=== PATIENT | male | born 1970 | race Hispanic/Latino ===

== ENCOUNTER 2017-12-03 15:50 | Emergency (ER) | payer MEDICARE, MEDICAID ==
[2017-12-03 15:50] VITALS: BMI 35.2
[2017-12-03 16:28] VITALS: BP 144/84; PULSE 78; RESP 16; TEMP 98.7; O2SAT 98
--- NOTE | 2017-12-03 16:32 | ED PDOC ---
Arrival/HPI - General Chief Complaint: Trauma Time Seen by Provider: 12/03/17 16:30 Historian: Patient - History of Present Illness Narrative History of Present Illness (Text): 12/03/17 16:31 47 y/o male, pmh including htn/dm, psychiatric including drug abuse, nkda, c/o lower back pain and head injury s/p fall x 1 hour. Pt. stated that he was walking down the stair, slipped and hit the lower back on the edge of the stair and posterior head, no LOC, no dizziness, no numbness or tingling, no urinary or bowel incontinence or retention, no rash, no pain medication taken at home and refusing pain medication in the ER or as prescription. Pt. has no rib or chest pain, no abdominal pain, no urinary or bowel incontinence or retention, no other medical or psychological complaints. Past Medical History - Provider Review Nursing Documentation Reviewed: Yes - Infectious Disease Hx of Infectious Diseases: None - Tetanus Immunization Tetanus Immunization: Unknown - Cardiac Hx Hypertension: Yes Hx Pacemaker: No - Pulmonary Hx Respiratory Disorders: No - Neurological Hx Paralysis: No - HEENT Hx HEENT Disorder: No - Renal Hx Renal Disorder: No - Endocrine/Metabolic Hx Endocrine Disorders: Yes Hx Diabetes Mellitus Type 2: Yes - Hematological/Oncological Hx Blood Transfusions: No Hx Blood Transfusion Reaction: No - Integumentary Hx Dermatological Disorder: No (JAUNDICE NEW ONSET 5-14) - Musculoskeletal/Rheumatological Hx Musculoskeletal Disorders: Yes (FAILED BACK SURGERY-CHRONIC BACK PAIN/H/O OF BACK INJURY) - Gastrointestinal Hx Gastrointestinal Disorders: No Hx Liver Failure: Yes - Genitourinary/Gynecological Hx Genitourinary Disorders: No - Psychiatric Hx Emotional Abuse: No Hx Physical Abuse: No Hx Substance Use: Yes (PAST IVDU YRS AGO/"PAIN MED ABUSE"-ON METH PROGRAM X 1YR) - Past Surgical History Past Surgical History: No Previous - Surgical History Other/Comment: had umbilical hernia surgery in 2005. Also had cardiac cath. few months ago. - Anesthesia Hx Anesthesia Reactions: No Hx Malignant Hyperthermia: No - Suicidal Assessment Feels Threatened In Home Enviroment: No Family/Social History - Physician Review Nursing Documentation Reviewed: Yes Family/Social History: Unknown Family HX Smoking Status: Current Some Days Smoker Hx Alcohol Use: Yes (Occasionaly) Hx Substance Use: Yes (PAST IVDU YRS AGO/"PAIN MED ABUSE"-ON METH PROGRAM X 1YR) Hx Substance Use Treatment: No Allergies/Home Meds Allergies/Adverse Reactions: Allergies No Known Allergies Allergy (Verified 11/03/16 12:11) Home Medications: Home Meds Medication Instructions Recorded Confirmed Methadone 105 mg PO DAILY 11/04/16 12/03/17 Acarbose [Precose] 50 mg PO TID 12/03/16 12/03/17 Sitagliptin Phos/Metformin HCl 1 tab PO BID 12/03/16 12/03/17 [Janumet 50-1,000 mg Tablet] Valsartan/Hydrochlorothiazide 1 tab PO DAILY 12/08/16 12/03/17 [Valsartan and Hydrochlorothiazide 25 mg-160 M] Review of Systems - Review of Systems Constitutional: absent: Fatigue, Fevers Eyes: absent: Vision Changes ENT: absent: Hearing Changes Respiratory: absent: SOB, Cough Cardiovascular: absent: Chest Pain Gastrointestinal: absent: Abdominal Pain, Nausea, Vomiting Musculoskeletal: Back Pain. absent: Arthralgias Skin: absent: Rash, Pruritis Neurological: Headache Psychiatric: absent: Anxiety, Depression Physical Exam Vital Signs Reviewed: Yes Vital Signs Temp Pulse Resp BP Pulse Ox 12/03/17 16:24 98.7 F 78 16 144/84 98 Temperature: Afebrile Blood Pressure: Normal Pulse: Regular Respiratory Rate: Normal Appearance: Positive for: Well-Appearing, Non-Toxic, Comfortable Pain Distress: Mild Mental Status: Positive for: Alert and Oriented X 3 - Systems Exam Head: Present: Atraumatic, Normocephalic. No: Tenderness, Contusion, Swelling, Ecchymosis, Abrasion, Laceration, Other Pupils: Present: PERRL Extroacular Muscles: Present: EOMI Conjunctiva: Present: Normal Mouth: Present: Moist Mucous Membranes Neck: Present: Normal Range of Motion, Trachea Midline. No: MIDLINE TENDERNESS , Paraspinal Tenderness, Lymphadenopathy Respiratory/Chest: Present: Clear to Auscultation, Good Air Exchange. No: Respiratory Distress, Accessory Muscle Use Cardiovascular: Present: Regular Rate and Rhythm, Normal S1, S2. No: Murmurs Abdomen: Present: Normal Bowel Sounds. No: Tenderness, Distention, Peritoneal Signs Back: Present: Normal Inspection, Paraspinal Tenderness, Other (Thoracic to LS spine: +ttp and ecchymosis noted on the lt paraspinal muscle region with approx. 3cm diameter ecchymosis, no midline or paraspinal tenderness noted on the thoracic spine, no rash, no deformity, FROM without limitation, sensation intact, motor 5/5. ). No: CVA Tenderness, Midline Tenderness, Pain with Leg Raise, Decubitus Ulcer Upper Extremity: Present: Normal Inspection. No: Cyanosis, Edema Lower Extremity: Present: Normal Inspection. No: Edema Neurological: Present: GCS=15, CN II-XII Intact, Speech Normal Skin: Present: Warm, Dry, Normal Color. No: Rashes Psychiatric: Present: Alert, Oriented x 3, Normal Insight, Normal Concentration Medical Decision Making ED Course and Treatment: 12/03/17 16:41 -CT head/lumbar spine -Offer pain med and he refused. -Observe and reassess 12/03/17 18:47 -CT head: No acute intracranial abnormalities. No significant findings to account for the clinical presentation. -CT Lumbar spine: Status post laminectomy and fusion L5-S1 expected postoperative findings. Soft tissue injury cutaneous and subcutaneous tissues primarily midline in the back. -Pain improved, still refused pain, agreed on the topical lidoderm as outpatient. -Discussed the CT lumbar and head results with Dr. Sanchez, he agreed on the discharge plan. -Discharge home with cane, lidoderm patch, ice compression, follow up with your own pmd and your own orthopedic spine surgeon within 2 days, return to the ER for any new or worsening signs or symptoms. - RAD Interpretation Radiology Orders: 12/03/17 16:37 HEAD W/O CONTRAST [CT] Stat LUMBAR SPINE W/O CONTRAST [CT] Stat CT Head: ROCEDURE: CT HEAD WITHOUT CONTRAST. HISTORY: fall, lower back injury COMPARISON: None available. TECHNIQUE: Axial computed tomography images were obtained through the head/brain without intravenous contrast. Radiation dose: Total exam DLP = 1197.52 mGy-cm. This CT exam was performed using one or more of the following dose reduction techniques: Automated exposure control, adjustment of the mA and/or kV according to patient size, and/or use of iterative reconstruction technique. FINDINGS: HEMORRHAGE: No intracranial hemorrhage. BRAIN: No mass effect or edema. No atrophy or chronic microvascular ischemic changes. VENTRICLES: Unremarkable. No hydrocephalus. CALVARIUM: Unremarkable. PARANASAL SINUSES: Mucous retention cyst right maxillary sinus. MASTOID AIR CELLS: Unremarkable as visualized. No inflammatory changes. OTHER FINDINGS: None. IMPRESSION: No acute intracranial abnormalities. No significant findings to account for the clinical presentation. CT L Spine: PROCEDURE: CT Lumbar Spine without contrast HISTORY: fall, lower back injury COMPARISON: 03/23/2014 CT abdomen and pelvis. TECHNIQUE: Axial computed tomography images were obtained of the lumbar spine without the use of intravenous contrast. Coronal and sagittal reformatted images were created and reviewed. Radiation dose: Total exam DLP = 2400.79 mGy-cm. This CT exam was performed using one or more of the following dose reduction techniques: Automated exposure control, adjustment of the mA and/or kV according to patient size, and/or use of iterative reconstruction technique. FINDINGS: VERTEBRAE: Orthopedic hardware related to laminectomy and fusion L5, S1 with disc arthroplasty noted. Similar findings identified on the prior CT scan which included the area of interest 03/23/2014. No evidence of orthopedic hardware failure. DISCS/SPINAL CANAL/NEURAL FORAMINA: L1-2: Unremarkable. L2-3: Unremarkable. L3-4: Unremarkable. L4-5: Unremarkable. L5-S1: Grade 1 anterolisthesis L5-S1. Expected postoperative changes at this level. There is endplate sclerosis, irregularity to endplates in the intervening disc arthroplasty device is identified. PARASPINAL SOFT TISSUES: Unremarkable. OTHER FINDINGS: Soft tissue swelling cutaneous and subcutaneous tissues mild, primarily midline. IMPRESSION: Status post laminectomy and fusion L5-S1 expected postoperative findings. Soft tissue injury cutaneous and subcutaneous tissues primarily midline in the back. Histology Technician: Radiologist - PA / KEYING MACHINE OPERATOR / Resident Statement MD/DO has reviewed & agrees with the documentation as recorded. Disposition/Present on Arrival - Present on Arrival Any Indicators Present on Arrival: No History of DVT/PE: No History of Uncontrolled Diabetes: No Urinary Catheter: No History of Decub. Ulcer: No History Surgical Site Infection Following: None - Disposition Have Diagnosis and Disposition been Completed?: Yes Diagnosis: Accidental fall, Back injury, Back pain Disposition: HOME/ ROUTINE Disposition Time: 18:50 Patient Plan: Discharge Condition: IMPROVED Additional Instructions: -Discharge home with cane, lidoderm patch, ice compression, follow up with your own pmd and your own orthopedic spine surgeon within 2 days, return to the ER for any new or worsening signs or symptoms. Prescriptions: Lidocaine 5% [Lidoderm] 1 patch TP DAILY PRN #[id number] patch PRN Reason: Other Referrals: Jorge Alberto Sullivan MD [Primary Care Provider] - Follow up with primary Chace Mitchell MD [Staff Provider] - Follow up with primary Felix Bowman MD [Staff Provider] - Follow up with primary Forms: [facility] (Luxembourgish), WORK NOTE
--- NOTE | 2017-12-03 17:55 | CT ---
PROCEDURE: CT HEAD WITHOUT CONTRAST. HISTORY: fall, lower back injury COMPARISON: None available. TECHNIQUE: Axial computed tomography images were obtained through the head/brain without intravenous contrast. Radiation dose: Total exam DLP = 1197.52 mGy-cm. This CT exam was performed using one or more of the following dose reduction techniques: Automated exposure control, adjustment of the mA and/or kV according to patient size, and/or use of iterative reconstruction technique. FINDINGS: HEMORRHAGE: No intracranial hemorrhage. BRAIN: No mass effect or edema. No atrophy or chronic microvascular ischemic changes. VENTRICLES: Unremarkable. No hydrocephalus. CALVARIUM: Unremarkable. PARANASAL SINUSES: Mucous retention cyst right maxillary sinus. MASTOID AIR CELLS: Unremarkable as visualized. No inflammatory changes. OTHER FINDINGS: None. IMPRESSION: No acute intracranial abnormalities. No significant findings to account for the clinical presentation.
[2017-12-03] MEDS ORDERED: Morphine 4 mg/ml ISec IVP STA (18:19)
--- NOTE | 2017-12-03 18:39 | CT ---
PROCEDURE: CT Lumbar Spine without contrast HISTORY: fall, lower back injury COMPARISON: 03/23/2014 CT abdomen and pelvis. TECHNIQUE: Axial computed tomography images were obtained of the lumbar spine without the use of intravenous contrast. Coronal and sagittal reformatted images were created and reviewed. Radiation dose: Total exam DLP = 2400.79 mGy-cm. This CT exam was performed using one or more of the following dose reduction techniques: Automated exposure control, adjustment of the mA and/or kV according to patient size, and/or use of iterative reconstruction technique. FINDINGS: VERTEBRAE: Orthopedic hardware related to laminectomy and fusion L5, S1 with disc arthroplasty noted. Similar findings identified on the prior CT scan which included the area of interest 03/23/2014. No evidence of orthopedic hardware failure. DISCS/SPINAL CANAL/NEURAL FORAMINA: L1-2: Unremarkable. L2-3: Unremarkable. L3-4: Unremarkable. L4-5: Unremarkable. L5-S1: Grade 1 anterolisthesis L5-S1. Expected postoperative changes at this level. There is endplate sclerosis, irregularity to endplates in the intervening disc arthroplasty device is identified. PARASPINAL SOFT TISSUES: Unremarkable. OTHER FINDINGS: Soft tissue swelling cutaneous and subcutaneous tissues mild, primarily midline. IMPRESSION: Status post laminectomy and fusion L5-S1 expected postoperative findings. Soft tissue injury cutaneous and subcutaneous tissues primarily midline in the back.
== END 2017-12-03 19:00 | disposition home or self-care (01) ==
LOC: ED 15:50
DX: S39.92XA Unspecified injury of lower back, initial encounter (principal); W10.8XXA Fall (on) (from) other stairs and steps, initial encounter; Y92.89 Other specified places as the place of occurrence of the external cause

== ENCOUNTER 2018-09-22 10:12 | Emergency (ER) | payer MEDICAID, MEDICARE ==
[2018-09-22 10:28] VITALS: BMI 33.9
[2018-09-22 10:29] VITALS: BP 157/92; PULSE 69; RESP 17; TEMP 98; O2SAT 97
--- NOTE | 2018-09-22 11:18 | ED PDOC ---
Arrival/HPI - General Chief Complaint: Abnormal Skin Integrity Time Seen by Provider: 09/22/18 10:45 Historian: Patient - History of Present Illness Narrative History of Present Illness (Text): 09/22/18 10:59 48yr old male with history of diabetes, diabetic neuropathy and right great toe amputation presents today with a 2 day history of pain redness and swelling to the right lower extremity. Patient denies any trauma or injury. Patient states he thinks he just has been standing on his feet too long. Patient is complaining of pain in the calf. pt denies trauma or injury. denies fever/chills. no cp or sob. pt states he is still smoking. Past Medical History - Provider Review Nursing Documentation Reviewed: Yes - Travel History Have you recently traveled outside [place] w/in the past 3 mons?: No - Infectious Disease Hx of Infectious Diseases: None - Tetanus Immunization Tetanus Immunization: Unknown - Cardiac Hx Cardiac Disorders: Yes Hx Hypertension: Yes - Pulmonary Hx Respiratory Disorders: No - Neurological Hx Neurological Disorder: Yes Other/Comment: Peripheral neuropathy - HEENT Hx HEENT Disorder: No - Renal Hx Renal Disorder: No - Endocrine/Metabolic Hx Endocrine Disorders: Yes Hx Diabetes Mellitus Type 2: Yes - Hematological/Oncological Hx Blood Disorders: Yes Hx Hepatitis C: Yes - Integumentary Hx Dermatological Disorder: Yes - Musculoskeletal/Rheumatological Hx Musculoskeletal Disorders: Yes Hx Back Pain: Yes - Gastrointestinal Hx Gastrointestinal Disorders: Yes Hx Liver Failure: Yes - Genitourinary/Gynecological Hx Genitourinary Disorders: No - Psychiatric Hx Psychophysiologic Disorder: Yes Hx Substance Use: Yes (heroin, Rx narcotics) Other/Comment: hx of substance abuse. - Past Surgical History Past Surgical History: No Previous - Surgical History Hx Amputation: Yes Other/Comment: Cardiac cath. - Anesthesia Hx Anesthesia Reactions: No Hx Malignant Hyperthermia: No - Suicidal Assessment Feels Threatened In Home Enviroment: No Family/Social History - Physician Review Nursing Documentation Reviewed: Yes Family/Social History: Unknown Family HX Smoking Status: Heavy Smoker > 10 Cigarettes Daily Hx Alcohol Use: Yes (Occasionaly) Hx Substance Use: Yes (heroin, Rx narcotics) Hx Substance Use Treatment: No Allergies/Home Meds Allergies/Adverse Reactions: Allergies No Known Allergies Allergy (Verified 09/22/18 10:43) Home Medications: Home Meds Medication Instructions Recorded Confirmed Methadone 105 mg PO DAILY 11/04/16 12/03/17 Acarbose [Precose] 50 mg PO TID 12/03/16 12/03/17 Sitagliptin Phos/Metformin HCl 1 tab PO BID 12/03/16 12/03/17 [Janumet 50-1,000 mg Tablet] Valsartan/Hydrochlorothiazide 1 tab PO DAILY 12/08/16 12/03/17 [Valsartan and Hydrochlorothiazide 25 mg-160 M] Review of Systems - Review of Systems Constitutional: absent: Fatigue, Fevers Respiratory: absent: SOB, Cough Cardiovascular: absent: Chest Pain, Palpitations Gastrointestinal: absent: Abdominal Pain, Constipation, Diarrhea, Nausea, Vomiting Musculoskeletal: Arthralgias Skin: Skin Lesions, Cellulitis Neurological: absent: Headache, Dizziness Psychiatric: absent: Anxiety, Depression Physical Exam Vital Signs Reviewed: Yes Vital Signs Temp Pulse Resp BP Pulse Ox 09/22/18 10:28 98.0 F 69 17 157/92 H 97 Temperature: Afebrile Blood Pressure: Hypertensive Pulse: Regular Respiratory Rate: Normal Appearance: Positive for: Well-Appearing, Non-Toxic, Comfortable Pain Distress: None Mental Status: Positive for: Alert and Oriented X 3 - Systems Exam Head: Present: Atraumatic Mouth: Present: Moist Mucous Membranes Neck: Present: Normal Range of Motion Respiratory/Chest: Present: Clear to Auscultation, Good Air Exchange. No: Respiratory Distress, Accessory Muscle Use Cardiovascular: Present: Regular Rate and Rhythm, Normal S1, S2. No: Murmurs Upper Extremity: Present: Normal Inspection Lower Extremity: Present: CALF TENDERNESS, NORMAL PULSES, Normal ROM, Tenderness (right leg; + edema and erythema noted from 2nd toe along entire foot and extending to mid calf; + warmth. there is a dime sized ulceration noted to the plantar aspect of the right 2nd toe. no purulent discharge noted. distal pulses intact. decreased sensation in feet bilaterally.), Swelling, Erythema, Capillary Refill < 2 s. No: Neurovascularly Intact Neurological: Present: GCS=15, Speech Normal Skin: Present: Warm, Dry Psychiatric: Present: Alert, Oriented x 3 Medical Decision Making ED Course and Treatment: 09/22/18 11:23 48yr old diabetic male with infected right great toe ulceration with cellulitis along foot and right lower leg. vitals stable. cbc wnl cmp: glucose 235 blood cultures pending. xray right foot; no fracture, no signs of osteo venous duplex right leg; no dvt ulceration cleaned and irrigated. dressing applied. pt was started on vancomycin and zosyn; pt has refused admission to the hospital for IV abx for infected foot ulcer and cellulitis. pt states he cant stay in the hospital since he is taking care of his kids while his is in [place]. I've discussed in depth with the patient the severity of his infection. I've advised the patient the risk of , disability or worsening of symptoms including sepsis, and amputation/loss of limb. Patient verbalizes understanding of severity of his infection in his leg and the possibility that if he does not stay in the hospital for IV abx he has a risk of , sepsis or loss of limb. Patient has been advised to not leave the emergency room but has decided to go AGAINST MEDICAL ADVICE. The patient possesses capacity to make decisions and has voiced understanding to all my warnings of potential worsening of the condition for which medical care was sought. I have discussed all known and potential risks and consequences to the patient leaving AGAINST MEDICAL ADVICE. Patient is leaving against medical advise. AMA form signed. witness by MASTER aquino/vicky i advised the patient that i will give him an rx for PO abx, but that he NEEDS IV antibiotics and that he should return to the ER as soon as he can for admission. pt states he is going to try to arrange care for his children and then return to ER tonight. all aspects of this case were discussed the attending of record. impression; diabetic foot ulcer, cellulitis, foot cellulitis leg, Return if you wish to continue your care Bactrim on tablet twice daily 7 days Keflex one capsule 4 times daily 7 days Follow up with the foot doctor TOMORROW. Follow up with the primary care physician. Return immediately if symptoms worsen persist or if new concerning symptoms develop or if you wish to continue your care - RAD Interpretation Radiology Orders: 09/22/18 10:55 DUPLEX LOWER EXTRM VEIN RIGHT [US] Stat 09/22/18 10:56 FOOT RIGHT 3 VIEWS ROUTINE [RAD] Stat Disposition/Present on Arrival - Present on Arrival Any Indicators Present on Arrival: Yes History of DVT/PE: No History of Uncontrolled Diabetes: Yes Urinary Catheter: No History of Decub. Ulcer: Yes History Surgical Site Infection Following: None - Disposition Have Diagnosis and Disposition been Completed?: Yes Diagnosis: Cellulitis of foot, Foot ulcer Disposition: AGAINST MEDICAL ADVICE Disposition Time: 10:58 Patient Plan: Other (AMA) Patient Problems: Current Active Problems Problem Status Onset Cellulitis of foot Acute Foot ulcer Acute Condition: GUARDED Discharge Instructions (ExitCare): Cellulitis (ED) Additional Instructions: RETURN IF YOU WISH TO CONTINUE YOUR CARE Bactrim on tablet twice daily 7 days Keflex one capsule 4 times daily 7 days Follow up with the foot doctor TOMORROW. Follow up with the primary care physician. Return immediately if symptoms worsen persist or if new concerning symptoms develop or if you wish to continue your care Prescriptions: Cephalexin [Keflex] 500 mg PO QID #28 capsule Sulfamethoxazole/Trimethoprim [Bactrim DS 800 mg-160 mg] 1 tab PO BID #14 tab Referrals: Joon Blankenship MD [Primary Care Provider] - Follow up with primary Forms: [facility] ([place]ian), WORK NOTE
[2018-09-22 11:37] LABS: BASO # 0.01 K/mm3 (0.0-2.0); BASO % 0.1 % (0.0-3.0); EOS # 0.1 (0.0-0.7); EOS % 0.5 % (1.5-5.0); GRAN # 7.39 (1.4-6.5); GRAN % 72.9 % (50.0-68.0); HEMOGLOBIN 15.2 g/dL (14.0-18.0); LYMPH # 1.9 (1.2-3.4); LYMPH % 18.5 % (22.0-35.0); MEAN CORPUSCULAR HEMOGLOBIN 30.3 pg (25.0-35.0); MEAN CORPUSCULAR HGB CONC 34.9 g/dl (31.0-37.0); MEAN PLATELET VOLUME 10.5 fl (7.0-11.0); MONO # 0.8 (0.1-0.6); RBC 5.01 10^6/uL (3.5-6.1); RED CELL DISTRIBUTION WIDTH 13.6 % (11.5-14.5); WHITE BLOOD COUNT 10.1 10^3/uL (4.5-11.0)
[2018-09-22 11:48] LABS: ALB/GLOB RATIO 1.1 (1.1-1.8); ALBUMIN 3.9 g/dL (3.0-4.8); ALT/SGPT 19 U/L (7-56); AST/SGOT 22 U/L (17-59); BLOOD UREA NITROGEN 9 mg/dL (7-21); CALCIUM 8.9 mg/dL (8.4-10.5); GFR NON-AFRICAN AMERICAN > 60
[2018-09-22] MEDS ORDERED: Vancomycin 1gm in NS 250ml 1 GM/250 ML BAG IVPB STA (11:55)
[2018-09-22] MEDS ORDERED: Piperacillin/Tazobact 3.375 gm 100 ML IVPB STA (11:55)
--- NOTE | 2018-09-22 12:14 | RAD ---
Date of service: 09/22/2018 PROCEDURE: Right Foot Radiographs. HISTORY: ulcer right 2nd toe COMPARISON: 12/09/2016 FINDINGS: BONES: No evidence of osteomyelitis involving the 2nd toe. Previous amputation of the 1st toe JOINTS: Normal. SOFT TISSUES: Normal. OTHER FINDINGS: None. IMPRESSION: No evidence of osteomyelitis involving the 2nd toe. Previous amputation of the 1st toe
--- NOTE | 2018-09-22 12:27 | US ---
PROCEDURE: Right lower extremity venous US HISTORY: Leg pain and swelling. Evaluate for DVT. PHYSICIAN(S): Arvind Sullivan M.D. TECHNIQUE: Duplex sonography and color-flow Doppler with graded compression were used to evaluate the deep venous system of the right lower extremity. FINDINGS: The visualized deep venous system of the right lower extremity is sonographically normal and compressible. Normal waveforms and augmentation are seen. There is no sonographic evidence for deep venous thrombosis in the visualized segments of the right lower extremity. Enlarged lymph nodes are noted in the right groin. IMPRESSION: 1. No sonographic evidence for deep venous thrombosis in the visualized segments of the right lower extremity.
== END 2018-09-22 15:07 | disposition left against medical advice (07) ==
LOC: ED 10:12
DX: L03.115 Cellulitis of right lower limb (principal); L97.519 Non-pressure chronic ulcer of other part of right foot with unspecified severity; E11.40 Type 2 diabetes mellitus with diabetic neuropathy, unspecified; F17.210 Nicotine dependence, cigarettes, uncomplicated; I10 Essential (primary) hypertension
CPT/HCPCS: 73630; 80053; 85025; 87040; 93971; 96365; 99283; J2543

== ENCOUNTER 2018-12-04 19:43 | Emergency (ER) | payer MEDICARE ==
[2018-12-04 19:44] VITALS: BMI 32.8
[2018-12-04 20:04] VITALS: BP 139/96; PULSE 93; RESP 18; TEMP 97.3; O2SAT 95
--- NOTE | 2018-12-04 20:18 | ED PDOC ---
Arrival/HPI - General Chief Complaint: Chest Pain Time Seen by Provider: 12/04/18 19:46 Historian: Patient - History of Present Illness Narrative History of Present Illness (Text): 12/04/18 20:14 48 year old male whose past medical history includes diabetes and hypertension, presents to the emergency department complaining of onset intermittent chest discomfort. Patient describes the discomfort as a tight sensation that radiates to the left shoulder and left arm. He reports occasional nausea, but denies any vomiting. Patient denies any fever, chills, shortness of breath, vomiting, diarrhea, urinary symptoms, back pain, neck pain, headache, dizziness, or any other complaints. PMD: Dr. Morrison Symptom Onset: Sudden Symptom Course: Unchanged Activities at Onset: Light Context: Home Past Medical History - Provider Review Nursing Documentation Reviewed: Yes - Infectious Disease Hx of Infectious Diseases: None - Tetanus Immunization Tetanus Immunization: Unknown - Cardiac Hx Cardiac Disorders: Yes Hx Hypertension: Yes - Pulmonary Hx Respiratory Disorders: No - Neurological Hx Neurological Disorder: Yes Other/Comment: Peripheral neuropathy - HEENT Hx HEENT Disorder: No - Renal Hx Renal Disorder: No - Endocrine/Metabolic Hx Endocrine Disorders: Yes Hx Diabetes Mellitus Type 2: Yes - Hematological/Oncological Hx Blood Disorders: Yes Hx Hepatitis C: Yes - Integumentary Hx Dermatological Disorder: Yes - Musculoskeletal/Rheumatological Hx Musculoskeletal Disorders: Yes Hx Back Pain: Yes - Gastrointestinal Hx Gastrointestinal Disorders: Yes Hx Liver Failure: Yes - Genitourinary/Gynecological Hx Genitourinary Disorders: No - Psychiatric Hx Psychophysiologic Disorder: Yes Hx Substance Use: Yes (heroin, Rx narcotics) Other/Comment: hx of substance abuse. - Past Surgical History Past Surgical History: No Previous - Surgical History Hx Amputation: Yes Other/Comment: Cardiac cath. Back Sx - Anesthesia Hx Anesthesia: Yes Hx Anesthesia Reactions: No Hx Malignant Hyperthermia: No - Suicidal Assessment Feels Threatened In Home Enviroment: No Family/Social History - Physician Review Nursing Documentation Reviewed: Yes Family/Social History: No Known Family HX Smoking Status: Heavy Smoker > 10 Cigarettes Daily Hx Alcohol Use: Yes (Occasionaly) Hx Substance Use: Yes (heroin, Rx narcotics) Hx Substance Use Treatment: No Allergies/Home Meds Allergies/Adverse Reactions: Allergies No Known Allergies Allergy (Verified 12/04/18 19:58) Home Medications: Home Meds Medication Instructions Recorded Confirmed Methadone 44 mg PO DAILY 11/04/16 12/04/18 Review of Systems - Physician Review All systems were reviewed & negative as marked: Yes - Review of Systems Constitutional: absent: Fevers, Other (Chills) Respiratory: absent: SOB Cardiovascular: Chest Pain Gastrointestinal: Nausea. absent: Diarrhea, Vomiting Genitourinary Male: absent: Dysuria, Frequency, Hematuria Musculoskeletal: absent: Back Pain, Neck Pain Neurological: absent: Headache, Dizziness Physical Exam Vital Signs Reviewed: Yes Vital Signs Temp Pulse Resp BP Pulse Ox 12/04/18 19:48 97.3 F L 93 H 18 139/96 H 95 Temperature: Afebrile Blood Pressure: Normal Pulse: Regular Respiratory Rate: Normal Appearance: Positive for: Well-Appearing, Non-Toxic, Comfortable Pain Distress: None Mental Status: Positive for: Alert and Oriented X 3 - Systems Exam Head: Present: Atraumatic, Normocephalic Pupils: Present: PERRL Extroacular Muscles: Present: EOMI Conjunctiva: Present: Normal Mouth: Present: Moist Mucous Membranes Neck: Present: Normal Range of Motion Respiratory/Chest: Present: Clear to Auscultation, Good Air Exchange. No: Respiratory Distress, Accessory Muscle Use Cardiovascular: Present: Regular Rate and Rhythm, Normal S1, S2. No: Murmurs Abdomen: No: Tenderness, Distention, Peritoneal Signs Back: Present: Normal Inspection Upper Extremity: Present: Normal Inspection. No: Cyanosis, Edema Lower Extremity: Present: Normal Inspection. No: Edema Neurological: Present: GCS=15, CN II-XII Intact, Speech Normal Skin: Present: Warm, Dry, Normal Color. No: Rashes Psychiatric: Present: Alert, Oriented x 3, Normal Insight, Normal Concentration Medical Decision Making ED Course and Treatment: 12/04/18 20:14 Impression: 48 year old male presents complaining of onset intermittent chest tightness that radiates to the left shoulder and arm associated with occasional nausea. Plan: -- EKG -- Labs -- Chest X-ray -- Reassess and disposition Prior Visits: Notes and results from previous visits were reviewed. Progress Notes: 12/04/18 20:16 EKG shows NSR at [address]/T changes. Interpreted by me. 12/04/18 21:30 Chest X-ray reviewed, shows no acute processes. 12/04/18 21:41 Discussed results and plan with pt, pt was offered hospital admission for further evaluation. Pt refused, states he would like to go home. Pt was advised on this risks of leaving against medical advice. Pt continues to wish to leave. Pt will sign out against medical advice. The patient is choosing to leave against medical advice. I have personally explained to the patient that choosing to do so may result in permanent bodily harm, diability, or . I have discussed at great length that without further evaluation and monitoring there may be unforeseen circumstances and/or deterioration causing permanent bodily harm or as a result of their choice. The patient is alert, oriented, and shows the mental capacity to make clear decisions regarding the patients health care at this time. The patient continues to wish to leave against medical advice. In light of the patients decision to leave against medical advice, patient is aware of the importance to following up as instructed. The patient has been advised that they should return to the emergency room immediately if they change their mind at any time, or if their condition begins to change or worsen in any way. - Lab Interpretations I have reviewed the lab results: Yes - RAD Interpretation Radiology Orders: 12/04/18 20:03 CHEST PORTABLE [RAD] Stat Morgue Technician: ED Physician - EKG Interpretation Interpreted by ED Physician: Yes Type: 12 lead EKG - Scribe Statement The provider has reviewed the documentation as recorded by the Marcos Allen Provider Scribe Attestation: All medical record entries made by the Marcelleibcolton were at my direction and personally dictated by me. I have reviewed the chart and agree that the record accurately reflects my personal performance of the history, physical exam, medical decision making, and the department course for this patient. I have also personally directed, reviewed, and agree with the discharge instructions and disposition. Disposition/Present on Arrival - Present on Arrival Any Indicators Present on Arrival: No History of DVT/PE: No History of Uncontrolled Diabetes: Yes Urinary Catheter: No History of Decub. Ulcer: No History Surgical Site Infection Following: None - Disposition Have Diagnosis and Disposition been Completed?: Yes Diagnosis: Chest pain Disposition: AGAINST MEDICAL ADVICE Disposition Time: 21:50 Condition: GOOD Discharge Instructions (ExitCare): Chest Pain (ED) Forms: [employer] (Croatian)
[2018-12-04 20:45] LABS: HEMOGLOBIN 17.8 g/dL (14.0-18.0); MEAN CORPUSCULAR HEMOGLOBIN 30.3 pg (25.0-35.0); MEAN PLATELET VOLUME 11.6 fl (7.0-11.0); RBC 5.88 10^6/uL (3.5-6.1); RED CELL DISTRIBUTION WIDTH 12.2 % (11.5-14.5); WHITE BLOOD COUNT 7.7 10^3/uL (4.5-11.0)
[2018-12-04 20:50] LABS: INR 0.95; PARTIAL THROMBOPLASTIN TIME 28.6 Seconds (25.1-36.5); PROTHROMBIN TIME 10.8 SECONDS (9.4-12.5)
[2018-12-04 21:10] LABS: TROPONIN I < 0.01 ng/mL
[2018-12-04 21:20] LABS: ALB/GLOB RATIO 1.2 (1.1-1.8); ALBUMIN 4.3 g/dL (3.0-4.8); ALT/SGPT 27 U/L (7-56); AST/SGOT 26 U/L (17-59); BLOOD UREA NITROGEN 14 mg/dL (7-21); CALCIUM 9.5 mg/dL (8.4-10.5); GFR NON-AFRICAN AMERICAN > 60; LIPASE 50 U/L (23-300)
[2018-12-04] MEDS ORDERED: Insulin Regular 1 UNITS/0.01 ML ML SC STA (21:21)
--- NOTE | 2018-12-05 09:46 | RAD ---
Date of service: 12/04/2018 HISTORY: chest pain COMPARISON: 11/03/2016 FINDINGS: LUNGS: No active pulmonary disease. PLEURA: No significant pleural effusion identified, no pneumothorax apparent. CARDIOVASCULAR: No aortic atherosclerotic calcification present. Normal cardiac size. No pulmonary vascular congestion. OSSEOUS STRUCTURES: No significant abnormalities. VISUALIZED UPPER ABDOMEN: Normal. OTHER FINDINGS: None. IMPRESSION: No active disease.
--- NOTE | 2018-12-05 10:48 | CARD ---
APPROVED REPORT Date of service: 12/04/2018 EKG Measurement Heart [id number] <Conclusion> Normal sinus rhythm Rightward axis Borderline ECG
== END 2018-12-04 21:55 | disposition left against medical advice (07) ==
LOC: ED 19:43
DX: R07.9 Chest pain, unspecified (principal); F17.210 Nicotine dependence, cigarettes, uncomplicated; I10 Essential (primary) hypertension; E11.9 Type 2 diabetes mellitus without complications

== ENCOUNTER 2019-02-15 17:38 | Outpatient (CLI) | payer MEDICARE | END 2019-02-15 17:39 | disposition home or self-care (01) | LOC: LAB 17:38 ==

== ENCOUNTER 2019-03-07 12:04 | Outpatient (CLI) | payer MEDICARE | END 2019-03-07 12:05 | disposition home or self-care (01) | LOC: RAD 12:04 | DX: E11.49 Type 2 diabetes mellitus with other diabetic neurological complication (principal) ==